=== PATIENT | female | born 1990 | race Native Hawaiian/Other Pacific Islander ===

== ENCOUNTER 2018-05-02 18:20 | Inpatient (IN) | payer OTHER ==
[~2018-05-02] VITALS: Ht 162.6 cm; Wt 95.3 kg
[2018-05-02] VITALS (8 sets, daily range): BP systolic 104–158; BP diastolic 67–97; TEMP 98.7–100.6
[2018-05-02 20:50] LABS: PLATELET COUNT 276 K/uL (152-353)
[2018-05-03] VITALS (25 sets, daily range): BP systolic 94–129; BP diastolic 44–80; TEMP 98.7–100.9; Ht 162.6 cm; Wt 95.3 kg
[2018-05-03 08:52] LABS: POTASSIUM 3.8 mmol/L (3.6-5.2)
[2018-05-03 09:33] LABS: PLATELET COUNT 208 K/uL (152-353)
[2018-05-04] VITALS (25 sets, daily range): BP systolic 92–200; BP diastolic 46–110; TEMP 98.1–100
[2018-05-04 05:16] LABS: PLATELET COUNT 219 K/uL (152-353)
[2018-05-04 06:13] LABS: POTASSIUM 3.8 mmol/L (3.6-5.2)
[2018-05-05] VITALS (16 sets, daily range): BP systolic 98–119; BP diastolic 55–79; TEMP 97.6–99.4
[2018-05-05 15:08] LABS: PLATELET COUNT 277 K/uL (152-353)
[2018-05-05 15:20] LABS: POTASSIUM 3.8 mmol/L (3.6-5.2)
[2018-05-06] VITALS (7 sets, daily range): BP systolic 104–136; BP diastolic 62–920; TEMP 97.7–98.7
[2018-05-06 13:20] LABS: PLATELET COUNT 281 K/uL (152-353)
[2018-05-06 13:35] LABS: POTASSIUM 4.2 mmol/L (3.6-5.2)
[2018-05-07 04:00] VITALS: BP 112/77; TEMP 98.1
[2018-05-07 08:00] VITALS: BP 122/85; TEMP 97.9
[2018-05-07 12:00] VITALS: BP 119/81; TEMP 97.8
[2018-05-07 16:00] VITALS: BP 145/86; TEMP 97.6
[2018-05-07 20:00] VITALS: BP 116/71; TEMP 97.7
[2018-05-08] VITALS: BP 106/69; TEMP 97.7
[2018-05-08 03:52] VITALS: BP 111/67; TEMP 98
[2018-05-08 04:57] LABS: PLATELET COUNT 295 K/uL (152-353)
[2018-05-08 05:17] LABS: POTASSIUM 3.9 mmol/L (3.6-5.2)
== END 2018-05-08 07:30 | disposition home or self-care (01) | DRG 872 ==
LOC: ED 18:20 → MED/SURG 05-03 01:00 → ICU 05-03 02:00 → MED/SURG 05-05 15:45
PROVIDERS: Emergency Medicine; Family Medicine; ADMIT Internal Medicine
DX: A41.89 Other specified sepsis (principal); L02.214 Cutaneous abscess of groin; N39.0 Urinary tract infection, site not specified; L05.01 Pilonidal cyst with abscess; F14.129 Cocaine abuse with intoxication, unspecified; F12.129 Cannabis abuse with intoxication, unspecified; B96.20 Unspecified Escherichia coli [E. coli] as the cause of diseases classified elsewhere; A74.89 Other chlamydial diseases; D64.89 Other specified anemias; R25.2 Cramp and spasm; G47.00 Insomnia, unspecified
CPT/HCPCS: 36415; 80048; 80053; 80307; 81000; 81025; 82306; 82607; 82746; 83605; 85027; 86140; 87040; 87070; 87077; 87086; 87088; 87186; 87205; 87490; 87590; 93005; 96361; 96365; 96375; 99285; J0690; J1170; J1885; J2405; J3370; Q9963

== ENCOUNTER 2021-09-04 04:34 | Emergency (ER) | payer OTHER ==
[~2021-09-04] VITALS: Ht 170.2 cm; Wt 99.8 kg
[2021-09-04 05:11] LABS: POTASSIUM 3.6 mmol/L (3.6-5.2)
[2021-09-04 05:17] LABS: PLATELET COUNT 193 K/uL (152-353)
[2021-09-04 07:08] VITALS: BP 125/88; TEMP 97
== END 2021-09-04 13:10 | disposition other institution (70) ==
LOC: ED 04:34
PROVIDERS: Emergency Medicine Emergency Medical Services
DX: F30.8 Other manic episodes (principal); F20.89 Other schizophrenia; N39.0 Urinary tract infection, site not specified; Z11.52 Encounter for screening for COVID-19
CPT/HCPCS: 36415; 80053; 80143; 80164; 80179; 80307; 80320; 81002; 81015; 81025; 85027; 87077; 87086; 87088; 87186; 87635; 99284; U0003

== ENCOUNTER 2021-12-25 00:28 | Emergency (ER) | payer OTHER ==
[~2021-12-25] VITALS: Ht 170.2 cm; Wt 99.8 kg
[2021-12-25 01:24] LABS: PLATELET COUNT 231 K/uL (152-353)
[2021-12-25 01:29] LABS: POTASSIUM 3.7 mmol/L (3.6-5.2)
[2021-12-27 07:00] VITALS: BP 124/88; TEMP 97
== END 2021-12-27 08:20 | disposition still patient (30) ==
LOC: ED 00:28
PROVIDERS: Emergency Medicine Emergency Medical Services
DX: F31.89 Other bipolar disorder (principal); R45.851 Suicidal ideations; Z20.822 Contact with and (suspected) exposure to COVID-19
CPT/HCPCS: 36415; 80053; 80143; 80179; 80307; 80320; 81002; 81025; 85027; 87635; 93005; 99285; U0003

== ENCOUNTER 2022-03-30 12:20 | Emergency (ER) | payer OTHER ==
[~2022-03-30] VITALS: Ht 170.2 cm; Wt 90.7 kg
[2022-03-30 12:20] VITALS: BP 139/89; TEMP 97.9
[2022-03-30 13:43] LABS: PLATELET COUNT 212 K/uL (152-353); POTASSIUM 3.5 mmol/L (3.6-5.2)
== END 2022-03-30 16:40 | disposition other institution (70) ==
LOC: ED 12:31
PROVIDERS: Emergency Medicine Emergency Medical Services
DX: R45.851 Suicidal ideations (principal); F15.10 Other stimulant abuse, uncomplicated; Z33.1 Pregnant state, incidental; Z11.52 Encounter for screening for COVID-19
CPT/HCPCS: 80053; 80143; 80179; 80307; 80320; 81002; 81025; 85027; 87635; 93005; 99285; U0003